=== PATIENT | male | born 1960 | race Caucasian/White ===

== ENCOUNTER 2017-04-06 15:44 | Emergency (ER) | payer OTHER ==
[~2017-04-06] VITALS: Ht 188 cm; Wt 90.7 kg
[~2017-04-06 15:44] MED LIST: THE MEDICINE S300 MG PO
--- NOTE | 2017-04-06 16:07 | Emergency Room Report ---
History of Present Illness Time Seen by [id number] Presenting Problem in Triage Pt arrived:Walked Presenting Problem:PRESENTS WITH JAUNDICED SKIN AND SCLERA, FIRST NOTICED ON SATURDAY BY HIS ; RECENT PROCEDURE BY DR CLEMENT FOR TESTICLE REMOVAL DURING FIRST WEEK OF JANUARY OF THIS YEAR. NOTED PT HAS A STRONG FAMILY HX FOR CANCER. 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 N Clinical Suspician of Infection? N Mental Status: 1 - Regular (Normal Baseline) Sepsis Risk:Low Sepsis Risk Have you (or family members/close friends) recently traveled outside the [place]? N If Yes, where/when: Have you had exposure to infectious disease within the past month? TB? Other? Specify: Comment The patient complains of jaundice for the past 2 days. He has jaundice of the skin and scleral icterus. Dark colored urine. He has some epigastric discomfort to touch. He has indigestion and belching when he eats. He has poor appetite. No fever. He recently had surgery for removal of a testicle for mass and says that the pathology was negative for neoplasm. He has had a CAT scan done here on his abdomen and pelvis on 12/27/16 which showed mild splenomegaly, mild nonspecific adenopathy in the portal region. He drinks a 12 pack of beer on weekends. No excessive Tylenol use. No new medications except for antihistamines. His only recent travel was to [place] this summer. He ate some raw shellfish at the beginning of January. No diarrhea. ALLERGIES Coded Allergies: No Known Allergies (04/06/17) Home Medications Reported Medications [place]-3 Fatty Acids (Fish Oil) 300 MG PO History Medical History General More? Yes Additional hx: SEE FAMILY HX ON PREV REPORTS Immunization Hx Ped.Immunizations UTD Yes DT/Tetanus 1-4 Years Ago Surgical Hx Previous Surgery?Y Hernia Repair COLONOSCOPY TESTICLE REMOVAL Family History Family Hx Cancer Yes Social History Smoking Hx Smoker: Never Smoker Tobacco: No Review of Systems All Other Systems Reviewed and Negative Constitutional denies fever Eyes see HPI, other Gastrointestinal see HPI, abdominal pain, denies diarrhea, nausea Physical Exam Vital Signs Vital Signs Date Time Temp Pulse Resp B/P Pulse O2 O2 Flow FiO2 Ox Delivery Rate 04/06 1911 97.9 64 20 143/83 99 04/06 1626 66 18 147/85 98 04/06 1554 98.3 68 18 151/88 100 General Appearance no apparent distress, jaundice, scleral icterus Eye Exam - bilateral eye normal exam, bilateral eye PERRL, bilateral eye EOMI Ear, Nose, Throat hearing grossly normal, normal ENT inspection Neck normal inspection, non-tender, supple, full range of motion Respiratory Status Yes: trachea midline, chest symmetrical, non tender chest. No: respiratory distress. Lung Sounds bilateral: normal breath sounds, lungs clear. Cardiovascular normal exam, regular rate/rhythm, no peripheral edema, no gallop, no JVD, no murmur, no rub, normal peripheral pulses Peripheral Pulses Pulses normal Yes Gastrointestinal normal bowel sounds, soft, no organomegaly, no guarding, no rebound, tenderness (epigastric) Back normal inspection, no CVA tenderness, no vertebral tenderness Extremities non-tender, normal range of motion, normal inspection Neurologic alert, stone gluer II-XII nml as tested, normal exam, oriented x 3 Mental status normal mood/affect Skin intact, normal color, warm/dry Medical Decision Making LABS/Meds/Orders Pt receiving controlled substance in ED? No Results/Orders Laboratory Tests 04/06/17 1701: Hepatitis A IgM Ab Pending, Hep Bs Antigen Pending, Hep B Core IgM Ab Pending, Hepatitis C Antibody Pending 04/06/17 1701: Hepatitis A Ab Total Cancelled, Hep Bs Antigen Cancelled, Hep Bs Antibody Cancelled, Hep B Core Total Ab Cancelled, Hepatitis C Antibody Cancelled 04/06/17 1600: Total Bilirubin 24.8 *H, Direct Bilirubin 19.84 H, Indirect Bilirubin 4.96 H 04/06/17 1600: Amylase 21 L, Lipase 97 04/06/17 1600: Ammonia < 10 L 04/06/17 1600: Sodium 134 L, Potassium 4.1, Chloride 98, Carbon Dioxide 26, BUN 12, Creatinine 1.1, Estimated Creat Clear 96, Estimated GFR (MDRD) 69, Glucose 95, Calcium 9.3, Total Bilirubin 24.8 *H, AST 872 *H, ALT 1484 *H, Alkaline Phosphatase 363 H, Total Protein 7.2, Albumin 4.1, Globulin 3.1, Albumin/Globulin Ratio 1.3, PT 12.0 H, INR 1.11 H, WBC 4.5 L, RBC 5.21, Hgb 15.4, Hct 48.5, MCV 93.2, RDW 15.6, Plt Count 28 *L, MPV 11.5 H, Gran % 62.9, Gran # 2.8, Lymphocytes % 26.8, Monocytes % 6.5, Eosinophils % 3.2, Basophils % 0.5, Lymphocytes # 1.2, Monocytes # 0.3, Eosinophils # 0.1, Basophils # 0.0, PUBS MCHC 31.8, MCH 29.6, Acetaminophen 0 L Current Medication Orders Sig/Art Start time Last Medication Dose Route Stop Time Status Admin Iopamidol 75 ML ONCE ONE 04/06 1800 UNV 04/06 IV 04/06 180 1730 Sodium Chloride 10 ML ONCE ONE 04/06 1800 UNV 04/06 IV 04/06 1801 1730 Sodium Chloride 10 ML PRN PRN 04/06 1615 AC IV 04/07 1601 Sodium Chloride 1,000 ML .STK-MED ONE 04/06 1610 DC IV Orders Procedure Date/time Status DIET-NOTHING BY MOUTH 04/06 D Active HEPATITIS B PROFILE 04/[address] ABD & PELVIS W/ CONTRAST 04/06 1700 Active Acetaminophen 04/06 1655 Complete LIPASE 04/06 1608 Complete BILIRUBIN PROF-TOTAL,DIR,IND 04/06 1608 Complete AMYLASE 04/06 1608 Complete PROTHROMBIN TIME 04/[address] ABD/PELVIS REQ 04/06 160 Complete IV SALINE LOCK 04/06 1601 Active URINALYSIS/COMPLETE 04/06 1601 Active CBC WITH AUTO DIFF 04/06 1601 Complete CHEM 12 PROFILE 04/06 1601 Complete AMMONIA 04/06 1601 Complete XRAY/CT/US XRAY/CT/US CT abdomen, pelvis Comment CT scan interpreted by [facility] radiologist. Faxed report received and reviewed: Periportal edema. Portal vein dilated measuring 17 mm. Moderate amount of pericholecystic fluid. Gallbladder is contracted. No ductal dilatation. Mild splenomegaly. Spleen measures 14 cm. Portal hypertension. Consistent with cholecystitis. Progress - 6:40 PM: Case discussed with Dr. Patel. He recommends consultation with surgery. Dr. El is front elevator operator, from [facility]. Family prefers for the patient to be transferred to [facility]. 7:11 PM: Case discussed with Dr. Pascal, gastroenterology at [facility]. He feels that the patient should be transferred to [facility] under the care of the hospitalist with consultation to gastroenterology. He does not feel the patient has a surgical problem or will need an ERCP. He is concerned about possibility of a portal vein thrombosis, or hepatitis, or undiagnosed cirrhosis with portal hypertension. The patient prefers to go by private vehicle. Departure Departure Disposition DC/XFER from ER to [facility] Clinical Impression Primary Impression: Jaundice Secondary Impressions: Splenomegaly, Thrombocytopenia Condition STABLE Referrals Lamar Gong MD (Family) ED Critical Care Critical Care No at 1952
--- NOTE | 2017-04-06 16:07 | Emergency Room Report ---
History of Present Illness Time Seen by [id number] Presenting Problem in Triage Pt arrived:Walked Presenting Problem:PRESENTS WITH JAUNDICED SKIN AND SCLERA, FIRST NOTICED ON SATURDAY BY HIS ; RECENT PROCEDURE BY DR CLEMENT FOR TESTICLE REMOVAL DURING FIRST WEEK OF JANUARY OF THIS YEAR. NOTED PT HAS A STRONG FAMILY HX FOR CANCER. 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 N Clinical Suspician of Infection? N Mental Status: 1 - Regular (Normal Baseline) Sepsis Risk:Low Sepsis Risk Have you (or family members/close friends) recently traveled outside the [place]? N If Yes, where/when: Have you had exposure to infectious disease within the past month? TB? Other? Specify: Comment The patient complains of jaundice for the past 2 days. He has jaundice of the skin and scleral icterus. Dark colored urine. He has some epigastric discomfort to touch. He has indigestion and belching when he eats. He has poor appetite. No fever. He recently had surgery for removal of a testicle for mass and says that the pathology was negative for neoplasm. He has had a CAT scan done here on his abdomen and pelvis on 12/27/16 which showed mild splenomegaly, mild nonspecific adenopathy in the portal region. He drinks a 12 pack of beer on weekends. No excessive Tylenol use. No new medications except for antihistamines. His only recent travel was to [place] this summer. He ate some raw shellfish at the beginning of January. No diarrhea. ALLERGIES Coded Allergies: No Known Allergies (04/06/17) Home Medications Reported Medications [place]-3 Fatty Acids (Fish Oil) 300 MG PO History Medical History General More? Yes Additional hx: SEE FAMILY HX ON PREV REPORTS Immunization Hx Ped.Immunizations UTD Yes DT/Tetanus 1-4 Years Ago Surgical Hx Previous Surgery?Y Hernia Repair COLONOSCOPY TESTICLE REMOVAL Family History Family Hx Cancer Yes Social History Smoking Hx Smoker: Never Smoker Tobacco: No Review of Systems All Other Systems Reviewed and Negative Constitutional denies fever Eyes see HPI, other Gastrointestinal see HPI, abdominal pain, denies diarrhea, nausea Physical Exam Vital Signs Vital Signs Date Time Temp Pulse Resp B/P Pulse O2 O2 Flow FiO2 Ox Delivery Rate 04/06 1911 97.9 64 20 143/83 99 04/06 1626 66 18 147/85 98 04/06 1554 98.3 68 18 151/88 100 General Appearance no apparent distress, jaundice, scleral icterus Eye Exam - bilateral eye normal exam, bilateral eye PERRL, bilateral eye EOMI Ear, Nose, Throat hearing grossly normal, normal ENT inspection Neck normal inspection, non-tender, supple, full range of motion Respiratory Status Yes: trachea midline, chest symmetrical, non tender chest. No: respiratory distress. Lung Sounds bilateral: normal breath sounds, lungs clear. 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 No Results/Orders Laboratory Tests 04/06/17 1701: Hepatitis A IgM Ab Pending, Hep Bs Antigen Pending, Hep B Core IgM Ab Pending, Hepatitis C Antibody Pending 04/06/17 1701: Hepatitis A Ab Total Cancelled, Hep Bs Antigen Cancelled, Hep Bs Antibody Cancelled, Hep B Core Total Ab Cancelled, Hepatitis C Antibody Cancelled 04/06/17 1600: Total Bilirubin 24.8 *H, Direct Bilirubin 19.84 H, Indirect Bilirubin 4.96 H 04/06/17 1600: Amylase 21 L, Lipase 97 04/06/17 1600: Ammonia < 10 L 04/06/17 1600: Sodium 134 L, Potassium 4.1, Chloride 98, Carbon Dioxide 26, BUN 12, Creatinine 1.1, Estimated Creat Clear 96, Estimated GFR (MDRD) 69, Glucose 95, Calcium 9.3, Total Bilirubin 24.8 *H, AST 872 *H, ALT 1484 *H, Alkaline Phosphatase 363 H, Total Protein 7.2, Albumin 4.1, Globulin 3.1, Albumin/Globulin Ratio 1.3, PT 12.0 H, INR 1.11 H, WBC 4.5 L, RBC 5.21, Hgb 15.4, Hct 48.5, MCV 93.2, RDW 15.6, Plt Count 28 *L, MPV 11.5 H, Gran % 62.9, Gran # 2.8, Lymphocytes % 26.8, Monocytes % 6.5, Eosinophils % 3.2, Basophils % 0.5, Lymphocytes # 1.2, Monocytes # 0.3, Eosinophils # 0.1, Basophils # 0.0, PUBS MCHC 31.8, MCH 29.6, Acetaminophen 0 L Current Medication Orders Sig/Art Start time Last Medication Dose Route Stop Time Status Admin Iopamidol 75 ML ONCE ONE 04/06 1800 UNV 04/06 IV 04/06 180 1730 Sodium Chloride 10 ML ONCE ONE 04/06 1800 UNV 04/06 IV 04/06 1801 1730 Sodium Chloride 10 ML PRN PRN 04/06 1615 AC IV 04/07 1601 Sodium Chloride 1,000 ML .STK-MED ONE 04/06 1610 DC IV Orders Procedure Date/time Status DIET-NOTHING BY MOUTH 04/06 D Active HEPATITIS B PROFILE 04/[address] ABD & PELVIS W/ CONTRAST 04/06 1700 Active Acetaminophen 04/06 1655 Complete LIPASE 04/06 1608 Complete BILIRUBIN PROF-TOTAL,DIR,IND 04/06 1608 Complete AMYLASE 04/06 1608 Complete PROTHROMBIN TIME 04/[address] ABD/PELVIS REQ 04/06 160 Complete IV SALINE LOCK 04/06 1601 Active URINALYSIS/COMPLETE 04/06 1601 Active CBC WITH AUTO DIFF 04/06 1601 Complete CHEM 12 PROFILE 04/06 1601 Complete AMMONIA 04/06 1601 Complete XRAY/CT/US XRAY/CT/US CT abdomen, pelvis Comment CT scan interpreted by [facility] radiologist. Faxed report received and reviewed: Periportal edema. Portal vein dilated measuring 17 mm. Moderate amount of pericholecystic fluid. Gallbladder is contracted. No ductal dilatation. Mild splenomegaly. Spleen measures 14 cm. Portal hypertension. Consistent with cholecystitis. Progress - 6:40 PM: Case discussed with Dr. Patel. He recommends consultation with surgery. Dr. El is cushion sewer, from [facility]. Family prefers for the patient to be transferred to [facility]. 7:11 PM: Case discussed with Dr. Pascal, gastroenterology at [facility]. He feels that the patient should be transferred to [facility] under the care of the hospitalist with consultation to gastroenterology. He does not feel the patient has a surgical problem or will need an ERCP. He is concerned about possibility of a portal vein thrombosis, or hepatitis, or undiagnosed cirrhosis with portal hypertension. The patient prefers to go by private vehicle. Departure Departure Disposition DC/XFER from ER to [facility] Clinical Impression Primary Impression: Jaundice Secondary Impressions: Splenomegaly, Thrombocytopenia Condition STABLE Referrals Lamar Gong MD (Family) ED Critical Care Critical Care No at 1952
[2017-04-06 16:36] LABS: BILIRUBIN, INDIRECT 4.96 mg/dL (0-0.9)
[2017-04-06 16:43] LABS: HEMOGLOBIN 15.4 g/dL (14.1-18.0); LYMPH # 1.2 K/mm3 (0.7-4.5); LYMPH % 26.8 % (10-50)
[2017-04-06 20:08] VITALS: BP 143/83
--- NOTE | 2017-04-07 08:57 | RADIOLOGY REPORT PS360 ---
CT ABD PELVIS W/ CONTRAST COMPARISON: CT scan abdomen pelvis 12/27/2016 HISTORY: New onset of the radiologist, epigastric pain TECHNIQUE: Multiple axial scans obtained from hemidiaphragms the pelvic floor and were performed with IV contrast only. Sagittal coronal reformats were evaluated as well. FINDINGS: There is minimal atelectasis in the posterior gutters bilaterally. The liver is grossly normal though there is prominent periportal edema. The gallbladder is contracted but shows prominent pericholecystic fluid. There are no definite gallstones identified. There is no intrahepatic ductal dilatation. The portal vein is mildly prominent. The stomach and pancreas appear normal. There is mild to moderate splenomegaly is noted previously. The adrenal glands are normal. The kidneys are normal size and show symmetrical function both appearing normal. Small bowel is normal. Do not definitely identify the appendix but there are no pericecal inflammatory changes. The urinary bladder and prostate appear normal. IMPRESSION: Findings consistent with acute cholecystitis with mild periportal edema likely secondary to the inflammatory changes of the gallbladder. Probable early portal hypertension with splenomegaly and prominent portal vein as noted, agree the [facility] report.
[2017-04-09 07:43] LABS: HBsAg Screen Negative (Negative); Hep A Ab, IgM Negative (Negative); Hep B Core Ab, IgM Negative (Negative); Hep C Virus Ab 0.2 (0.0-0.9)
--- OUTSIDE RECORDS SUMMARY | 2017-04-12 15:31 | External Medical Summary Rpt ---
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 Role Phone MARK LEPE PCP [phone] Encounter [facility] [id number] Date(s): 01/02/17 - 01/08/17 [facility] [address] [place] [id number]- Discharge Disposition: OP Self Care or Home Attending Physician: BARRERA CLEMENT MD-URO Admitting Physician: BARRERA CLEEMNT MD-URO Referring Physician: BARRERA CLEMENT MD-URO Reason for Visit DISORDER OF MALE GENITAL ORGANS, UNSPECIFIED Vital Signs Most recent 1 2 3 to oldest [Reference Range]: Temperature Temporal artery Temporal artery Temporal artery Source scanning (01/08/17 scanning (01/08/17 scanning (01/08/17 12:15 PM) 10:20 AM) 7:00 AM) Temperature Fahrenheit Fahrenheit Fahrenheit Mode (01/08/17 12:15 (01/08/17 10:20 (01/08/17 7:00 AM) PM) AM) Temperature, 97.6 Deg F 98.2 Deg F 97.7 Deg F Fahrenheit (01/08/17 12:15 (01/08/17 10:20 (01/08/17 7:00 AM) [96.8-99.7 PM) AM) Deg F] Clinical 36.4 Deg C 36.8 Deg C 36.5 Deg C Temperature, (01/08/17 12:15 (01/08/17 10:20 (01/08/17 7:00 AM) C PM) AM) Heart Rate 59 bpm 60 bpm 62 bpm (01/08/17 Monitored *LOW* (01/08/17 1:00 PM) 12:45 PM) [60-100 bpm] (01/08/17 1:15 PM) Respiratory 16 Breaths/Min 16 Breaths/Min 16 Breaths/Min Rate [14-20 (01/08/17 12:15 (01/08/17 12:00 (01/08/17 11:50 Breaths/Min] PM) PM) AM) Blood 145/92 mmHg 142/86 mmHg 146/88 mmHg Pressure *HI* *HI* *HI*(01/08/17 [90-140/60-9 (01/08/17 1:15 PM) (01/08/17 1:00 PM) 12:45 PM) 0 mmHg] Mean 97.590970 mmHg 100 mmHg (01/08/17 94.554566 mmHg Arterial (01/08/17 12:15 12:00 PM) (01/08/17 11:50 Pressure PM) AM) (MAP) Mean 99 (01/08/17 12:15 104 (01/08/17 98 (01/08/17 11:50 Arterial PM) 12:00 PM) AM) Pressure (MAP)-BMDI Oxygen 100 % 100 % 100 % (01/08/17 Saturation (01/08/17 1:15 PM) (01/08/17 1:00 PM) 12:45 PM) [94-100 %] Oxygen Room air Room air Room air (01/08/17 Therapy Mode (01/08/17 1:15 PM) (01/08/17 1:00 PM) 12:45 PM) Oxygen Flow 8 Liter/Min Rate (01/08/17 10:20 AM) Height Measured Source (01/07/17 5:20 PM) Height Entry [place] Format (01/07/17 5:20 PM) Height/Lengt 74 Inch h IVORIAN (01/07/17 5:20 PM) CLINICALHEIG 187.96 cm HT (01/07/17 5:20 PM) Weight Standing scale Source (01/07/17 5:20 PM) Weight Entry [place] Format (01/07/17 5:20 PM) Weight 196 lb [place] lb (01/07/17 5:20 PM) CLINICALWEIG 89.09 kg HT (01/07/17 5:20 PM) Body Surface 2.16 m2 Area (BSA) (01/07/17 5:20 PM) Body Mass 25.2 kg/m2 Index *HI* [19.0-24.0 (01/07/17 5:20 PM) kg/m2] [place] Body 81 kg Weight (01/07/17 5:20 PM) Problem List Condition Effective Status Health Informant Dates Status Back Active pain(Confirm ed) Hemorrhoids( Active Confirmed) Herniated Active disc, lumbar(Confi rmed) Testicular Active mass(Confirm ed) Allergies, Adverse Reactions, Alerts No Known Allergies Medications acetaminophen-oxyCODONE (Percocet 5/325 oral tablet)1 Tab, Oral, Every 6 Hours, As Needed, for pain, Refills: 0Ordering provider: VALENTIN GRAYSON MD, MD cephalexin (Keflex 500 mg oral capsule)1 Cap, Oral, Four Times A Day, 5 Day(s), Refills: 0Ordering provider: VALENTIN GRAYSON MD, MD [id number] mg, Oral, As Needed, as needed for sleep, Refills: 0 docusate (Colace 100 mg oral capsule)1 Cap, Oral, Two Times A Day, As Needed, as needed for constipation, Refills: 0Ordering provider: VALENTIN GRAYSON MD, MD omega-3 polyunsaturated fatty acids (Fish Oil) 1 Cap, Oral, Every Day, Refills: 0 Results No data available for this section Immunizations No data available for this section Procedures Procedure Date Related Body Site Diagnosis right inguinal hernia repair 2011 Social History Social History Response Type Smoking Status Never smoker Assessment and Plan No data available for this section Hospital Discharge Instructions Patient EducationGeneral Anesthesia, Adult, Care After Incision Care, [id number] Orchiectomy
--- OUTSIDE RECORDS SUMMARY | 2017-04-12 15:31 | External Medical Summary Rpt | CCD ---
Author Author , FLAKITA Organization FLAK[facility] Address Unknown Phone [email or web address] Purpose Continuity of Care Document - 12-20-2016 through 2016 Results Labs Lab Lab Date Result Refere Interp Status Commen Order Detail nces retati t Range on Acetaminophen level (mass/volume) (04-06-2017 16:00) Acetami = 0 10-30 complet nophen 017 ug/mL ed level 16:00 (mass/v olume) CBC w auto diff (04-06-2017 16:00) Blood = 4.5 4.8-10. complet leukocy 017 K/MM3 8 ed golden 16:00 count (number /volume ) Automat = 15.6 11.5-17 complet ed 017 % .5 ed erythro 16:00 cyte distrib ution width Red = 5.21 4.6-6.2 complet blood 017 M/mm3 ed cell 16:00 count Blood = 28 142-424 complet platele 017 K/mm3 ed t count 16:00 Comment: NOTIFICATION RESULT Automat = 11.5 7.4-10. complet ed 017 fl 4 ed blood 16:00 platele t mean volume bettina Bradford % = 6.5 % 1.7-9.3 complet 017 ed 16:00 Absolut = 0.3 0.1-1.0 complet e 017 K/mm3 ed monocyt 16:00 e count Automat = 93.2 82.2-97 complet ed 017 fl .8 ed erythro 16:00 cyte mean corpusc ular v Automat = 31.8 31.8-35 complet ed 017 g/dl .4 ed erythro 16:00 cyte mean corpusc ular h Mean = 29.6 27-31.2 complet corpusc 017 pg ed ular 16:00 hemoglo bin (MCH) determ Lymphoc = 26.8 10-50 complet yte 017 % ed count, 16:00 blood, automat ed Absolut = 1.2 0.7-4.5 complet e 017 K/mm3 ed lymphoc 16:00 yte count Blood = 15.4 14.1-18 complet hemoglo 017 g/dL .0 ed bin 16:00 measure ment (mass/v olum Blood = 48.5 42.0-52 complet hematoc 017 % .0 ed rit 16:00 (volume fractio n) Granulo = 62.9 37.0-80 complet cyte 017 % .0 ed percent 16:00 age Blood = 2.8 1.3-8.0 complet granulo 017 K/mm3 ed cytes 16:00 automat ed count (numb Automat = 3.2 % 0.1-12. complet ed 017 0 ed blood 16:00 eosinop hils/10 0 leukocy t Automat = 0.1 0.0-0.4 complet ed 017 K/mm3 ed blood 16:00 eosinop hil count Baso % = 0.5 % 0.1-2.0 complet 017 ed 16:00 Automat = 0.0 0-0.2 complet ed 017 K/MM3 ed blood 16:00 basophi l count (count/ vo Lipase measurement (04-06-2017 16:00) Lipase = 97 73-393 complet measure 017 U/L ed ment 16:00 Amylase ser/plas (04-06-2017 16:00) Amylase = 21 25-115 complet 017 U/L ed ser/magi 16:00 s Serum or plasma bilirubin direct and tot (04-06-2017 16:00) Serum = 24.8 0.2-1.0 complet or 017 mg/dL ed plasma 16:00 total bilirub in measure m Comment: NOTIFICATION RESULT Serum = 4.96 0-0.9 complet or 017 mg/dL ed plasma 16:00 indirec t bilirub in measu Bilirub = 19.84 0.0-0.2 complet in 017 mg/dL ed direct 16:00 Comprehensive metabolic panel (04-06-2017 16:00) Protein = 7.2 6.4-8.2 complet total 017 gm/dL ed ser/magi 16:00 s ALT = 1484 12-78 complet (SGPT) 017 U/L ed ser/magi 16:00 s Serum = 872 15-37 complet or 017 U/L ed plasma 16:00 asparta te aminotr ansfera Serum = 134 136-145 complet sodium 017 mmoL/L ed measure 16:00 ment Serum = 4.1 3.5-5.1 complet potassi 017 mmoL/L ed um 16:00 measure ment Serum = 95 74-106 complet or 017 mg/dL ed plasma 16:00 glucose measure ment (mas Serum = 3.1 1.3-3.2 complet globuli 017 gm/dL ed n 16:00 measure ment (mass/v olume) Estimat = 69 >60 complet ed 017 ML/MIN ed glomeru 16:00 lar filtrat ion rate (GF Comment: REFERENCE RANGE: >60 ML/MIN/1.73 SQUARE METERS Comment: If this patient is -Jordanian, then multiply the Comment: result by 1.210. Estimat = 96 50-200 complet ion of 017 ML/MIN ed creatin 16:00 ine renal clearan ce Serum = 1.1 0.70-1. complet or 017 mg/dL 30 ed plasma 16:00 creatin ine measure ment ( Carbon = 26 21.0-32 complet dioxide 017 mmoL/L .0 ed 16:00 measure ment Serum = 98 98-107 complet or 017 mmoL/L ed plasma 16:00 chlorid e measure ment (mo Serum = 9.3 8.5-10. complet or 017 mg/dL 1 ed plasma 16:00 calcium measure ment (mas Serum = 12 7-18 complet or 017 mg/dL ed plasma 16:00 urea nitroge n measure men Serum = 24.8 0.2-1.0 complet or 017 mg/dL ed plasma 16:00 total bilirub in measure m Comment: NOTIFICATION RESULT Serum = 363 46-116 complet or 017 U/L ed plasma 16:00 alkalin e phospha tase bettina Serum = 4.1 3.4-5.0 complet or 017 gm/dL ed plasma 16:00 albumin measure ment (mas Serum = 1.3 1.1-1.8 complet or 017 ed plasma 16:00 albumin /globul in mass ra Ammonia measurement (04-06-2017 16:00) Ammonia < 10 19-54 complet 017 umoL/L ed measure 16:00 ment Whole blood INR measurement (04-06-2017 16:00) Comment: IS PATIENT ON ANTICOAGULANTS? N Prothro = 12.0 9.4-11. complet mbin 017 SECONDS 8 ed time 16:00 (PT) in platele t poor p Whole = 1.11 0.9-1.1 complet blood 017 ed INR 16:00 measure ment Comment: INDICATION INR RANGE Comment: Comment: THERAPY FOR DVT, PE, ATRIAL FIB; 2.0 - 3.0 Comment: PROPHYLAXIS FOR VTE Comment: Comment: THERAPY FOR MECHANICAL HEART 2.5 - 3.5 Comment: VALVE; PREVENTION OF SYSTEMIC Comment: EMBOLISM SECONDARY TO AMI Choriogonadotropin.beta subunit ( test) [Presence] in Serum or Plasma (12-20-2016 13:41) Choriog 0 0mIU/ Normal complet onadotr 017 ML - ed opin.be 13:41 2mIU/ ta ML subunit (pregna ncy test) [Presen ce] in Serum or Plasma
--- OUTSIDE RECORDS SUMMARY | 2017-04-12 15:31 | External Medical Summary Rpt | CCD ---
Author Author , FLAKITA Organization FLAKITA Address Unknown Phone [email or web address] Purpose Continuity of Care Document - 12-20-2016 [...] blood 16:00 platele t mean volume bettina Whitley % = 6.5 % 1.7-9.3 complet 017 [...] SQUARE METERS Comment: If this patient is -Azerbaijani, then multiply the Comment: result by 1.210. [...]
--- OUTSIDE RECORDS SUMMARY | 2017-04-12 15:31 | External Medical Summary Rpt | CCD ---
Demographics Preferred Language Tamazight Marital Status Unknown Voodoo Affiliation Unknown Race Unknown Ethnic Group Unknown Author Author , ELSIE BOGGS Address Unknown Phone Immunization No patient found.
--- OUTSIDE RECORDS SUMMARY | 2017-04-12 15:31 | External Medical Summary Rpt | CCD ---
Author Author [facility] Organization [facility] Address Unknown Phone Unavailable Purpose Continuity of Care Document - through 2016
--- OUTSIDE RECORDS SUMMARY | 2017-04-12 15:31 | External Medical Summary Rpt | CCD ---
Demographics Preferred Language Indonesian Marital Status Unknown Congregation Affiliation Unknown Race Unknown Ethnic Group Unknown Author Author , ELSIE BOGGS Address Unknown Phone Immunization No patient found.
--- OUTSIDE RECORDS SUMMARY | 2017-04-12 15:31 | External Medical Summary Rpt ---
Author Author [facility] Organization [facility] Address Unknown Phone Unavailable Care Team Providers Care Bacteriology Technician Name Role Phone MARK LEPE PCP [phone] Encounter [facility] [id number] Date(s): 01/02/17 - 01/08/17 [facility] [address] [place] [phone]- [phone] Discharge Disposition: OP Self Care or Home Attending Physician: BARRERA CLEMENT MD-URO Admitting Physician: BARRERA CLEMENT MD-URO Referring Physician: BARRERA CLEMENT MD-URO Reason [...] 1:00 PM) 12:45 PM) 0 mmHg] Mean 97.722998 mmHg 100 mmHg (01/08/17 94.447952 mmHg Arterial (01/08/17 12:15 12:00 PM) (01/08/17 [...] Measured Source (01/07/17 5:20 PM) Height Entry Revillo Format (01/07/17 5:20 PM) Height/Lengt 74 Inch h ESTONIAN (01/07/17 5:20 PM) CLINICALHEIG 187.96 cm HT (01/07/17 5:20 PM) Weight Standing scale Source (01/07/17 5:20 PM) Weight Entry Revillo Format (01/07/17 5:20 PM) Weight 196 lb Latvian lb (01/07/17 5:20 PM) CLINICALWEIG 89.09 kg HT (01/07/17 5:20 PM) Body Surface 2.16 m2 Area (BSA) (01/07/17 5:20 PM) Body Mass 25.2 kg/m2 Index *HI* [19.0-24.0 (01/07/17 5:20 PM) kg/m2] [place] Body 81 kg Weight (01/07/17 5:20 PM) [...] Refills: 0Ordering provider: VALENTIN GRAYSON MD, MD [id number] mg, Oral, As Needed, as needed for [...] EducationGeneral Anesthesia, Adult, Care After Incision Care, Ssfk-cv-[id number] Orchiectomy
--- OUTSIDE RECORDS SUMMARY | 2017-04-12 15:32 | External Medical Summary Rpt ---
Author Author [facility] [employer], [facility] [employer] Organization [facility] Address Unknown Phone Unavailable Results Acetaminophen [Mass/volume] in Unspecified specimen Observa Value Referen Units Interpr Notes Date tion ce etation Range Acetamino 10 - 30 ug/mL Low No Apr 06 phen informati 2016 4:00 [Mass/vol on in PM ume] in source Unspecifi data ed specimen CBC W Auto Differential panel in Blood Observa Value Referen Units Interpr Notes Date tion ce etation Range Basophils 0 - 0.2 K/MM3 Normal No Apr 06 inform2016 4:00 [#/volume on in PM ] in source Blood by data Automated count Basophils 0.1 - 2.0 % Normal No Apr 06 / informati 2016 4:00 leukocyte on in PM s in source Blood by data Automated count Eosinophi 0.0 - 0.4 K/mm3 Normal No Apr 06 ls informati 2016 4:00 [#/volume on in PM ] in source Blood by data Automated count Eosinophi 0.1 - % Normal No Apr 06 ls/100 12.0 informati 2016 4:00 leukocyte on in PM s in source Blood by data Automated count Granulocy 1.3 - 8.0 K/mm3 Normal No Apr 06 golden informati 2016 4:00 [#/volume on in PM ] in source Blood by data Automated count Granulocy 37.0 - % Normal No Apr 06 golden/100 80.0 informati 2016 4:00 leukocyte on in PM s in source Blood by data Automated count Hematocri 42.0 - % Normal No Apr 06 t [Volume 52.0 informati 2016 4:00 on in PM Fraction] source of Blood data Hemoglobi 14.1 - g/dL Normal No Apr 06 n 18.0 informati 2016 4:00 [Mass/vol on in PM ume] in source Blood data Lymphocyt 0.7 - 4.5 K/mm3 Normal No Apr 06 es informati 2016 4:00 [#/volume on in PM ] in source Unspecifi data ed specimen by Automated count Lymphocyt 10 - 50 % Normal No Apr 06 es informati 2016 4:00 [#/volume on in PM ] in source Unspecifi data ed specimen by Automated count Erythrocy 27 - 31.2 pg Normal No Apr 06 te mean inform2016 4:00 corpuscul on in PM ar source hemoglobi data n [Entitic mass] Erythrocy 31.8 - g/dl Normal No Apr 06 te mean 35.4 inform2016 4:00 corpuscul on in PM ar source hemoglobi data n concentra tion [Mass/vol ume] by Automated count Erythrocy 82.2 - fl Normal No Apr 06 te mean 97.8 informati 2016 4:00 corpuscul on in PM ar volume source [Entitic data volume] by Automated count Monocytes 0.1 - 1.0 K/mm3 Normal No Apr 06 inform2016 4:00 [#/volume on in PM ] in source Blood by data Automated count Monocytes 1.7 - 9.3 % Normal No Apr 06 /100 informati 2016 4:00 leukocyte on in PM s in source Blood by data Automated count Platelet 7.4 - fl High No Apr 06 mean 10.4 informati 2016 4:00 volume on in PM [Entitic source volume] data in Blood by Automated count Platelets 142 - 424 K/mm3 Low alert Apr 06 NOTIFICAT 2017 4:00 [#/volume ION PM ] in RESULT Blood Erythrocy 4.6 - 6.2 M/mm3 Normal No Apr 06 golden informati 2016 4:00 [#/volume on in PM ] in source Amniotic data fluid Erythrocy 11.5 - % Normal No Apr 06 te 17.5 informati 2016 4:00 distribut on in PM ion width source [Entitic data volume] by Automated count Leukocyte 4.8 - K/MM3 Low No Apr 06 s 10.8 informati 2016 4:00 [#/volume on in PM ] in source Blood data Amylase [Enzymatic activity/volume] in Serum or Plasma Observa Value Referen Units Interpr Notes Date tion ce etation Range Amylase 25 - 115 U/L Low No Apr 06 [Enzymati informati 2016 4:00 c on in PM activity/ source volume] data in Serum or Plasma Lipase [Enzymatic activity/volume] in Serum or Plasma Observa Value Referen Units Interpr Notes Date tion ce etation Range Lipase 73 - 393 U/L Normal No Apr 06 [Enzymati informati 2017 4:00 c on in PM activity/ source volume] data in Serum or Plasma Bilirubin direct & total panel [Mass/volume] in Serum or Plasma Observa Value Referen Units Interpr Notes Date tion ce etation Range Bilirubin 0.0 - 0.2 mg/dL High No Apr 06 .direct informati 2016 4:00 [Mass/vol on in PM ume] in source Serum or data Plasma Bilirubin 0 - 0.9 mg/dL High No Apr 06 .indirect informati 2017 4:00 on in PM [Mass/vol source ume] in data Serum or Plasma Bilirubin 0.2 - 1.0 mg/dL High Apr 06 .total alert NOTIFICAT 2016 4:00 [Mass/vol ION PM ume] in RESULT Serum or Plasma Comprehensive metabolic 2000 panel in Serum or Plasma Observa Value Referen Units Interpr Notes Date tion ce etation Range Albumin/G 1.1 - 1.8 No Normal No Apr 06 lobulin informati informati 2016 4:00 [Mass on in on in PM ratio] in source source Serum or data data Plasma Albumin 3.4 - 5.0 gm/dL Normal No Apr 06 [Mass/vol informati 2016 4:00 ume] in on in PM Serum or source Plasma data Alkaline 46 - 116 U/L High No Apr 06 phosphata informati 2016 4:00 se on in PM [Enzymati source c data activity/ volume] in Serum or Plasma Bilirubin 0.2 - 1.0 mg/dL High Apr 06 .total alert NOTIFICAT 2016 4:00 [Mass/vol ION PM ume] in RESULT Serum or Plasma Urea 7 - 18 mg/dL Normal No Apr 06 nitrogen informati 2016 4:00 [Mass/vol on in PM ume] in source Serum or data Plasma Calcium 8.5 - mg/dL Normal No Apr 06 [Mass/vol 10.1 informati 2016 4:00 ume] in on in PM Serum or source Plasma data Chloride 98 - 107 mmoL/L Normal No Apr 06 [Moles/vo informati 2016 4:00 lume] in on in PM Serum or source Plasma data Carbon 21.0 - mmoL/L Normal No Oct 7 dioxide, 32.0 informati 2017 4:00 total on in PM [Moles/vo source lume] in data Serum or Plasma Creatinin 0.70 - mg/dL Normal No Apr 06 e 1.30 informati 2017 4:00 [Mass/vol on in PM ume] in source Serum or data Plasma Creatinin 50 - 200 ML/MIN Normal No Apr 06 e renal informati 2016 4:00 clearance on in PM source predicted data by Cockcroft -Gault formula Estimated >60 ML/MIN No REFERENCE Apr 06 informati RANGE: 2017 4:00 glomerula on in >60 PM r source ML/MIN/1. filtratio data 73 SQUARE n rate METERSIf (GF this patient is -A merican, then multiply theresult by 1.210. Globulin 1.3 - 3.2 gm/dL Normal No Apr 06 [Mass/vol informati 2016 4:00 ume] in on in PM Serum source data Glucose 74 - 106 mg/dL Normal No Apr 06 [Mass/vol informati 2016 4:00 ume] in on in PM Serum or source Plasma data Potassium 3.5 - 5.1 mmoL/L Normal No Apr 06 informati 2016 4:00 [Moles/vo on in PM lume] in source Serum or data Plasma Sodium 136 - 145 mmoL/L Low No Apr 06 [Moles/vo informati 2016 4:00 lume] in on in PM Serum or source Plasma data Aspartate 15 - 37 U/L High No Apr 06 alert informati 2016 4:00 aminotran on in PM sferase source [Enzymati data c activity/ volume] in Serum or Plasma Alanine 12 - 78 U/L High No Apr 06 aminotran alert informati 2016 4:00 sferase on in PM [Enzymati source c data activity/ volume] in Serum or Plasma Protein 6.4 - 8.2 gm/dL Normal No Apr 06 [Mass/vol informati 2016 4:00 ume] in on in PM Serum or source Plasma data INR in Blood by Coagulation assay Observa Value Referen Units Interpr Notes Date tion ce etation Range IS PATIENT ON ANTICOAGULANTS? N INR in 0.9 - 1.1 No High INDICATIO Apr 06 Blood by informati N 2016 4:00 Coagulati on in PM on assay source INR data RANGETHER APY FOR DVT, PE, ATRIAL FIB; 2.0 - 3.0PROPHY LAXIS FOR VTETHERAP Y FOR MECHANICA L HEART 2.5 - 3.5VALVE; PREVENTIO N OF SYSTEMICE MBOLISM SECONDARY TO AMI Prothromb 9.4 - SECONDS High No Apr 06 in time 11.8 informati 2017 4:00 (PT) in on in PM Platelet source poor data plasma by Coagulati on assay [id number] marker [Mass/volume] in Serum or Plasma Observa Value Referen Units Interpr Notes Date tion ce etation Range Alpha-1-f 0.0 - 8.3 ng/mL No Pranav Dec 20 etoprotei informati ECLIA 2017 1:41 n.tumor on in methodolo PM marker source gyPerform [Mass/vol data ed at: ume] in CB - Serum or [facility] Plasma [address] [address] [address] [place], [place] [id number] Jailor: Mario Castellanos PhD, Phone: [phone] Choriogonadotropin.beta subunit ( test) [Presence] in Serum or Plasma Observa Value Referen Units Interpr Notes Date tion ce etation Range Choriog 0 0 - 2 mIU/ML Normal WEEKS Dec 20 onadotr POST 2017 opin.be LMP 1:41 PM ta subunit HCG RANGE3- (pregna 4 ncy WEEKS test) [Presen 9 ce] in - Serum 1304-5 or WEEKS Plasma 75 - 04946-5 WEEKS 850 - 984771- 7 WEEKS 4000 - 5110827 -12 WEEKS 67458 - 1236969 2-16 WEEKS 31646 - 6522457 6-29 WEEKS 1400 - 7916045 -41 WEEKS 940 - [id number] EKS POST LMP HCG RANGE3- 4 WEEKS 9 - 1304-5 WEEKS 75 - 79347-4 WEEKS 850 - 556236- 7 WEEKS 4000 - 3004294 -12 WEEKS 19574 - 0813167 2-16 WEEKS 93667 - 8723578 6-29 WEEKS 1400 - 0529062 -41 WEEKS 940 - 23489 Comprehensive metabolic 2000 panel in Serum or Plasma Observa Value Referen Units Interpr Notes Date tion ce etation Range Albumin/G 1.1 - 1.8 No Normal No Dec 20 lobulin informati informati 2017 1:41 [Mass on in on in PM ratio] in source source Serum or data data Plasma Albumin 3.4 - 5.0 gm/dL Normal No Dec 20 [Mass/vol informati 2017 1:41 ume] in on in PM Serum or source Plasma data Alkaline 46 - 116 U/L High No Dec 20 phosphata informati 2016 1:41 se on in PM [Enzymati source c data activity/ volume] in Serum or Plasma Bilirubin 0.2 - 1.0 mg/dL Normal No Dec 20 .total informati 2016 1:41 [Mass/vol on in PM ume] in source Serum or data Plasma Urea 7 - 18 mg/dL Normal No Dec 20 nitrogen informati 2016 1:41 [Mass/vol on in PM ume] in source Serum or data Plasma Calcium 8.5 - mg/dL Normal No Dec 20 [Mass/vol 10.1 informati 2016 1:41 ume] in on in PM Serum or source Plasma data Chloride 98 - 107 mmoL/L Normal No Dec 20 [Moles/vo informati 2016 1:41 lume] in on in PM Serum or source Plasma data Carbon 21.0 - mmoL/L Normal No Dec 20 dioxide, 32.0 informati 2017 1:41 total on in PM [Moles/vo source lume] in data Serum or Plasma Creatinin 0.70 - mg/dL Normal No Dec 20 e 1.30 informati 2016 1:41 [Mass/vol on in PM ume] in source Serum or data Plasma Creatinin 50 - 200 ML/MIN Normal No Dec 20 e renal informati 2017 1:41 clearance on in PM source predicted data by Cockcroft -Gault formula Estimated >60 ML/MIN No REFERENCE Dec 20 informati RANGE: 2017 1:41 glomerula on in >60 PM r source ML/MIN/1. filtratio data 73 SQUARE n rate METERSIf (GF this patient is -A merican, then multiply theresult by 1.210. Globulin 1.3 - 3.2 gm/dL High No Dec 20 [Mass/vol informati 2016 1:41 ume] in on in PM Serum source data Glucose 74 - 106 mg/dL Normal No Dec 20 [Mass/vol informati 2016 1:41 ume] in on in PM Serum or source Plasma data Potassium 3.5 - 5.1 mmoL/L Normal No Dec 20 informati 2017 1:41 [Moles/vo on in PM lume] in source Serum or data Plasma Sodium 136 - 145 mmoL/L Normal No Dec 20 [Moles/vo informati 2017 1:41 lume] in on in PM Serum or source Plasma data Aspartate 15 - 37 U/L Normal No Dec 20 informati 2017 1:41 aminotran on in PM sferase source [Enzymati data c activity/ volume] in Serum or Plasma Alanine 12 - 78 U/L Normal No Dec 20 aminotran informati 2017 1:41 sferase on in PM [Enzymati source c data activity/ volume] in Serum or Plasma Protein 6.4 - 8.2 gm/dL Normal No Dec 20 [Mass/vol informati 2017 1:41 ume] in on in PM Serum or source Plasma data
--- OUTSIDE RECORDS SUMMARY | 2017-04-12 15:32 | External Medical Summary Rpt ---
[...] poor data plasma by Coagulati on assay [id number] marker [Mass/volume] in Serum or Plasma Observa Value Referen Units Interpr Notes Date tion ce etation Range Alpha-1-f 0.0 - 8.3 ng/mL No Pranav Dec 20 etoprotei informati ECLIA 2017 1:41 n.tumor on in methodolo PM marker source gyPerform [Mass/vol data ed at: ume] in CB - Serum or [facility] Plasma [address] [address] [address] [place], [place] [id number] Residential Tech: Mario Castellanos PhD, Phone: [phone] Choriogonadotropin.beta subunit ( test) [Presence] in Serum or Plasma Observa Value Referen Units Interpr Notes Date tion ce etation Range Choriog 0 0 - 2 mIU/ML Normal WEEKS Dec 20 onadotr POST 2017 opin.be LMP 1:41 PM ta subunit HCG RANGE3- (pregna 4 ncy WEEKS test) [Presen 9 ce] in - Serum 1304-5 or WEEKS Plasma 75 - 83007-5 WEEKS 850 - 677959- 7 WEEKS 4000 - 0142931 -12 WEEKS 35522 - 5408595 2-16 WEEKS 05747 - 1685180 6-29 WEEKS 1400 - 2751501 -41 WEEKS 940 - 78208UP EKS POST LMP HCG RANGE3- 4 WEEKS 9 - 1304-5 WEEKS 75 - 99166-8 WEEKS 850 - 909663- 7 WEEKS 4000 - 3242341 -12 WEEKS 31364 - 3585602 2-16 WEEKS 86203 - 3188000 6-29 WEEKS 1400 - 6518983 -41 WEEKS 940 - 29713 Comprehensive metabolic 2000 panel in Serum or [...]
== END 2017-04-06 20:10 | disposition short-term general hospital (02) ==
LOC: ER 15:44
PROVIDERS: Emergency Medicine
DX: R17 Unspecified jaundice (principal); R16.1 Splenomegaly, not elsewhere classified; D69.6 Thrombocytopenia, unspecified
CPT/HCPCS: Q9967

== ENCOUNTER → 2017-05-29 | Outpatient (CLI) | payer OTHER ==
[2017-05-29 11:27] LABS: BUN 19 mg/dL (7-18)
[2017-05-29 11:31] LABS: GFR (ESTIMATED) 69 ML/MIN (>60)
== END ==
LOC: LAB 10:08
PROVIDERS: Internal Medicine Gastroenterology
DX: K75.9 Inflammatory liver disease, unspecified (principal)

== ENCOUNTER → 2017-06-13 | Outpatient (CLI) | payer OTHER ==
[2017-06-13 16:40] LABS: BUN 19 mg/dL (7-18)
[2017-06-13 16:41] LABS: GFR (ESTIMATED) 87 ML/MIN (>60)
== END ==
LOC: LAB 15:22
PROVIDERS: Internal Medicine Gastroenterology
DX: K75.9 Inflammatory liver disease, unspecified (principal)